=== PATIENT | male | born 1950 | race Caucasian/White ===

== ENCOUNTER 2016-11-30 11:55 | Inpatient (IN) | payer OTHER, BC ==
[~2016-11-30] VITALS: Ht 185.4 cm; Wt 101.8 kg
[2016-11-30] MEDS ORDERED: ASPI-435 PO (12:29)
[2016-11-30] MEDS ORDERED: CARV3.122 PO (12:29)
[2016-11-30] MEDS ORDERED: ATOR-26 PO (12:29)
[2016-11-30] MEDS ORDERED: APIX1TAB3 PO (12:29)
[2016-11-30] MEDS ORDERED: LISI-789 PO (12:29)
[2016-11-30] MEDS ORDERED: SODIUM CHLORIDE 0.9% 1000ML 1,000 ML IV SCH (13:30)
[2016-11-30] MEDS ORDERED: SODIUM CHLORIDE 0.9% 500ML 500 ML IV STA (13:31)
[2016-11-30 13:48] LABS: BASO % 0.1 %; BASO ABS # 0.01 K/uL (0-0.2); COMPLETE YES; EOS % 3.1 %; HEMATOCRIT 37.4 % (42-52); IG% 0.2 %; LYMPH % 19.5 %; LYMPH ABS # 1.86 K/uL (1.2-3.4); MEAN CELL VOLUME 78.2 fL (80-100); MEAN CORPUSCULAR HEMOGLOBIN 26.4 pg (25-34); MEAN CORPUSCULAR HGB CONC 33.7 g/dl (32-36); MEAN PLATELET VOLUME 10.2 fL (7.4-10.4); MONO % 8.5 %; NEUT % 68.6 %; PLATELET COUNT 333 K/uL (130-400); RED BLOOD COUNT 4.78 M/uL (4.7-6.1); WHITE BLOOD COUNT 9.55 K/uL (4.8-10.8)
--- NOTE | 2016-11-30 13:57 | DIAGNOSTIC IMAGING REPORT ---
CHEST ONE VIEW PORTABLE CLINICAL HISTORY: Stroke. COMPARISON STUDY: No previous studies for comparison. FINDINGS: Lung volumes are normal. There is no consolidation. Moderate cardiomegaly is noted without evidence of pulmonary edema. There are median sternotomy wires and a prosthetic valve, likely mitral in location. There is no pneumothorax or pleural effusion. There may be curvilinear calcification projecting over the left ventricular apex. IMPRESSION: 1. No acute cardiopulmonary findings. 2. Moderate cardiomegaly. 3. Possible curvilinear calcification projecting of the left ventricular apex. This could reflect artifact, pericardial calcification or an old infarct. Electronically signed by: Ye Etienne M.D. 11/30/2016 1:56 PM Dictated Date/Time: 11/30/2016 1:53 PM
[2016-11-30 13:59] LABS: BLOOD UREA NITROGEN 15 mg/dl (7-18); BUN/CREATININE RATIO 17.1 (10-20); CARBON DIOXIDE 31 mmol/L (21-32); CHLORIDE 106 mmol/L (98-107); CREATININE 0.89 mg/dl (0.60-1.40); GLUCOSE 112 mg/dl (70-99); POTASSIUM 3.9 mmol/L (3.5-5.1); SODIUM 141 mmol/L (136-145)
--- NOTE | 2016-11-30 14:00 | DIAGNOSTIC IMAGING REPORT ---
CT SCAN OF THE BRAIN WITHOUT IV CONTRAST CLINICAL HISTORY: Dizziness. Left-sided facial numbness. COMPARISON STUDY: No priors. TECHNIQUE: Unenhanced axial CT scan of the brain is performed from the vertex to the skull base. CT DOSE: 614.27 mGy.cm FINDINGS: Brain parenchyma: There are age-related involutional changes noting [id number] patchy subcortical and periventricular microangiopathic change. There is focal left parietal encephalomalacia consistent with a remote cortical infarct. There is no hemorrhage, mass effect, or evidence of acute territorial ischemia by CT criteria. Ham-white matter is preserved. No extra-axial fluid collection is seen. Ventricles, sulci, cisterns: Prominent secondary to involutional change. Intracranial vasculature: There is atherosclerotic calcification of the cavernous carotid arteries. Calvarium: Unremarkable. Sinuses and mastoids: There is moderate mucosal thickening within the right maxillary antrum. The remaining visualized paranasal sinuses are clear. The mastoid air cells are well pneumatized. Orbits: The bony orbits are grossly intact. IMPRESSION: 1. There is no hemorrhage, mass effect, or evidence of acute territorial ischemia by CT criteria. 2. Senescent changes and remote left parietal lobe infarct as above. 3. Right maxillary sinus disease. Electronically signed by: Dima Olea M.D. 11/30/2016 1:59 PM Dictated Date/Time: 11/30/2016 1:56 PM
[2016-11-30 14:03] LABS: CKMB/CK RATIO 1.2 (0-3.0); PARTIAL THROMBOPLASTIN RATIO 1.2
[2016-11-30 16:11] LABS: BENZODIAZEPINE, URINE NEG (NEG); COCAINE,URINE NEG (NEG); PHENCYCLIDINE, URINE NEG (NEG)
[2016-11-30] MEDS ORDERED: PHARMACIST DISCHARGE MED REC CONSULT PRN (17:45)
--- NOTE | 2016-11-30 18:10 | History and Physical ---
History & Physical Date & Time of Service: Nov 30, 2016 at 17:44 Chief Complaint: Dizzy, Numbness In Face Primary Care Physician: Benjamin Tijerina M.D. History of Present Illness Source: patient, family, clinic records This patient is a pleasant 66-year-old male that presents to the emergency department with complaints of changes in vision and facial numbness that started today at approximately 11:30 AM. He has experienced similar symptoms in the past. He noticed that first his vision felt like it was not focusing. Then he felt slightly dizzy. Numbness started on the right side of his face and then moves to the left side. He still is experiencing numbness around the left side of his mouth. Vision now is normal. There is no reports of slurred speech or confusion. No focal weakness reported. The patient just had a workup for TIA in the last few weeks. His past medical history is fairly complicated. It started in June 2016 when he presented to the emergency department in [place]. He was found to have an inferior/posterior infarct. He was taken emergently to the [facility]. He was noted to have numerous blockages. He was then taken emergently for cardiac surgery and underwent a CABG 3 and also had a bioprosthetic MVR. His postoperative comlications included atrial fibrillation/A flutter and pericardial effusion. The patient was anticoagulated with Coumadin. He reportedly did not tolerate this. This was switched to Eliquis, which she has been taking for at least one month.The patient just sold his house in [place]. They spend 6 months of the year in the [facility]. They are temporarily living with the patient's son in [place]. He now follows with Dr. Tijerina locally. The patient underwent a workup for CVA a few weeks ago in [facility]. Dr. Tijerina reportedly has these records. The patient had an MRI that showed no acute abnormalities. 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 He did not use anesthetic. He pulled them out his fingers. There are reportedly loose and "bothering him." Workup in the emergency department showed no significant abnormalities in his blood work. He is mildly anemic with hemoglobin of 12.6. Cardiac enzymes are negative. CT of the head was negative. Neurology was contacted. They recommended that the patient be admitted for further workup. Past Medical/Surgical History Medical Problems: (1) Heart disease Status: Chronic History of CVA History of kidney stones status post ureteral stenting in the past and additional to lithotripsy History of atrial fib/atrial flutter status post cardiac surgery History of paracardial effusion status post cardiac surgery. Surgical Problems: (1) H/O mitral valve replacement Status: Resolved June 2016 (2) S/P triple vessel bypass Status: Resolved June 2016 Family History Kidney disease Kidney stones Mother is in her 80s reportedly in good health. Father's past medical history is unknown. Social History Smoking Status: Never Smoker (quit smoking many years ago) Alcohol Use: socially Marital Status: Housing status: lives with significant other Occupational Status: retired (retired facilities plant engineer) Allergies Coded Allergies: No Known Allergies (Unverified , 11/30/16) Home Medications Scheduled Apixaban (Eliquis), 5 MG PO BID Aspirin (Aspirin 81), 81 MG PO DAILY Atorvastatin (Lipitor), 80 MG PO DAILY Carvedilol (Coreg), 3.125 MG PO BID Lisinopril (Zestril), 2.5 MG PO DAILY Review of Systems 10 system review performed and negative unless noted in HPI or below Physical Exam Vital Signs Date Time Temp Pulse Resp B/P Pulse Ox O2 Delivery O2 Flow Rate FiO2 11/30/16 15:16 68 16 134/80 96 11/30/16 14:00 68 20 133/82 97 11/30/16 13:03 69 16 126/82 96 Room Air 11/30/16 12:24 69 11/30/16 11:58 36.7 74 22 145/89 95 Room Air General Appearance: no apparent distress Head: normocephalic Eyes: PERRL, EOMI ENT: + pertinent finding (right upper and right lower molar extracted. No surrounding erythema or edema noted of the gums. No purulent drainage noted. There is a residual piece of tooth in the right lower molar socket.) Neck: no JVD Respiratory/Chest: lungs clear Cardiovascular: regular rate, rhythm, + systolic murmur (very faint systolic murmur noted at the right upper sternal border.) Abdomen/GI: normal bowel sounds, non tender, soft Extremities/Musculoskelatal: no calf tenderness, no pedal edema Neurologic/Psych: silk screen processor II-XII nml as tested, no motor/sensory deficits Skin: warm/dry Diagnostics Laboratory Results Results Past 24 Hours Test 11/30/16 00:00 11/30/16 12:36 Range/Units Urine Opiates Screen NEG NEG Urine Methadone, Qualitative NEG NEG Urine Barbiturates NEG NEG Urine Phencyclidine (PCP) Level NEG NEG Ur Amphetamine/Methamphetamine NEG NEG MDMA (Ecstasy) Screen NEG NEG Urine Benzodiazepines Screen NEG NEG Urine Cocaine Metabolite NEG NEG Urine Marijuana (THC) NEG NEG White Blood Count 9.55 4.8-10.8 K/uL Red Blood Count 4.78 4.7-6.1 M/uL Hemoglobin 12.6 14.0-18.0 g/dL Hematocrit 37.4 42-52 % Mean Corpuscular Volume 78.2 80-100 fL Mean Corpuscular Hemoglobin 26.4 25-34 pg Mean Corpuscular Hemoglobin Concent 33.7 32-36 g/dl Platelet Count 333 130-400 K/uL Mean Platelet Volume 10.2 7.4-10.4 fL Neutrophils (%) (Auto) 68.6 % Lymphocytes (%) (Auto) 19.5 % Monocytes (%) (Auto) 8.5 % Eosinophils (%) (Auto) 3.1 % Basophils (%) (Auto) 0.1 % Neutrophils # (Auto) 6.55 1.4-6.5 K/uL Lymphocytes # (Auto) 1.86 1.2-3.4 K/uL Monocytes # (Auto) 0.81 0.11-0.59 K/uL Eosinophils # (Auto) 0.30 0-0.5 K/uL Basophils # (Auto) 0.01 0-0.2 K/uL RDW Standard Deviation 40.8 36.4-46.3 fL RDW Coefficient of Variation 14.4 11.5-14.5 % Immature Granulocyte % (Auto) 0.2 % Immature Granulocyte # (Auto) 0.02 0.00-0.02 K/uL Prothrombin Time 11.0 9.0-12.0 SECONDS Prothromb Time International Ratio 1.0 0.9-1.1 Activated Partial Thromboplast Time 30.6 21.0-31.0 SECONDS Partial Thromboplastin Ratio 1.2 Sodium Level 141 136-145 mmol/L Potassium Level 3.9 3.5-5.1 mmol/L Chloride Level 106 98-107 mmol/L Carbon Dioxide Level 31 21-32 mmol/L Anion Gap 4.0 3-11 mmol/L Blood Urea Nitrogen 15 7-18 mg/dl Creatinine 0.89 0.60-1.40 mg/dl Est Creatinine Clear Calc Drug Dose 102.2 ml/min Estimated GFR () 102.5 Estimated GFR (Non- 88.5 BUN/Creatinine Ratio 17.1 10-20 Random Glucose 112 70-99 mg/dl Calcium Level 9.0 8.5-10.1 mg/dl Total Creatine Kinase 51 39-308 U/L Creatine Kinase MB 0.6 0.5-3.6 ng/ml Creatine Kinase MB Ratio 1.2 0-3.0 Troponin I < 0.015 0-0.045 ng/ml Microbiology Results 11/30/16 Blood Culture, Jag Batch Pending 11/30/16 Blood Culture, Jag Batch Pending 11/30/16 Blood Culture, Jag Batch Pending Diagnostic Radiology Patient Name: DONNY HALEY JR Unit Number: [id number] Dictated: 11/30/161355 Transcribed: 11/30/161355 EV Printed Date/Time: [~ rep prt dt]/[~ rep prt tm] [~ rep ct labl] - [~ rep ct ivnm] [facility] [place] [address] Dictated: 11/30/161355 Transcribed: 11/30/16 135 EV Printed Date/Time: [~ rep prt dt]/[~ rep prt tm] [~ rep ct labl] - [~ rep ct ivnm] Patient: DONNY HALEY Address1: [address] [place] [address] Rec: [id number] Address2: Acct ID: [id number] [facility] Zip: [place] [address] Date: 1950 Sex: M Room/Bed: Ref Phy: Benjamin Tijerina M.D. SC: [facility] Att Phy: Report #: [id number] Polly Phy: Benjamin Tijerina M.D. Test: HWO Admit Phy: Museum Curator: ALEX Interpreting Phy: Dima Olea M.D. Diagnosis: DIZZY, NUMBNESS IN FACE Ordering Phy: Herbert Dickson DO Service Date: 11/30/16 Admit Date: 11/30/16 MNE: [id number] CONF: DICTATED BY: Dima Olea M.D.]] CC: Herbert Dickson, Benjamin Wylie M.D. Endcc: [~ rep ct add3]] CT SCAN OF THE BRAIN WITHOUT IV CONTRAST CLINICAL HISTORY: Dizziness. Left-sided facial numbness. COMPARISON STUDY: No priors. TECHNIQUE: Unenhanced axial CT scan of the brain is performed from the vertex to the skull base. CT DOSE: 614.27 mGy.cm FINDINGS: Brain parenchyma: There are age-related involutional changes noting [id number] patchy subcortical and periventricular microangiopathic change. There is focal left parietal encephalomalacia consistent with a remote cortical infarct. There is no hemorrhage, mass effect, or evidence of acute territorial ischemia by CT criteria. Ham-white matter is preserved. No extra-axial fluid collection is seen. Ventricles, sulci, cisterns: Prominent secondary to involutional change. Intracranial vasculature: There is atherosclerotic calcification of the cavernous carotid arteries. Calvarium: Unremarkable. Sinuses and mastoids: There is moderate mucosal thickening within the right maxillary antrum. The remaining visualized paranasal sinuses are clear. The mastoid air cells are well pneumatized. Orbits: The bony orbits are grossly intact. IMPRESSION: 1. There is no hemorrhage, mass effect, or evidence of acute territorial ischemia by CT criteria. 2. Senescent changes and remote left parietal lobe infarct as above. 3. Right maxillary sinus disease. Electronically signed by: Dima Olea M.D. 11/30/2016 1:59 PM Dictated Date/Time: 11/30/2016 1:56 PM The status of this report is Signed. Draft = Not yet reviewed or approved by Radiologist. Signed = Reviewed and approved by Radiologist. <AttendingPhy></AttendingPhy> <FamilyPhy>Benjamin Tijerina M.D.</FamilyPhy> < PrimaryPhy>Benjamin Tijerina M.D.</PrimaryPhy> <UnitNumber>[id number]</ UnitNumber> <VisitNumber>[id number]</VisitNumber> <PatientName>DONNY HALEY JR</PatientName> <DateOfBirth>1950</DateOfBirth> <Location>[facility]</ Location> <ServiceDate>11/30/16</ServiceDate> <MNE>ESINDI</MNE> <OrderingPhy> Herbert Dickson DO</OrderingPhy> <OrderingPhyMNE>f rep ord dr saucedo</OrderingPhyMNE > <DictatingPhyMNE>f rep dict dr saucedo</DictatingPhyMNE> <CCListMNE>f rep ct mne</ CCListMNE> <AdmittingPhyMNE>f pt admit dr saucedo</AdmittingPhyMNE> <AttendingPhyMNE >f pt attend dr saucedo</AttendingPhyMNE> <ConsultingPhyMNE>f pt consult dr saucedo</ConsultingPhyMNE> <FamilyPhyMNE>f pt fam dr saucedo</FamilyPhyMNE> <OtherPhyMNE>f pt other dr saucedo</OtherPhyMNE> < PrimaryPhyMNE>f pt prim care dr saucedo</PrimaryPhyMNE> <ReferringPhyMNE>f pt referring dr saucedo</ReferringPhyMNE> Patient: DONNY HALEY JR Address1: [address] [place] [address] Rec: [id number] Address2: Acct ID: [id number] [facility] Zip: [place] [address] Date: 1950 Sex: M Room/Bed: Ref Phy: Benjamin Tijerina M.D. SC: CHRISTOPHER Att Phy: Report #: [id number] Polly Phy: Benjamin Tijerina M.D. Test: CXR1P Admit Phy: Museum Curator: KRYSTYNA Interpreting Phy: Ye Etienne MD Diagnosis: DIZZY, NUMBNESS IN FACE Ordering Phy: Herbert Dickson DO Service Date: 11/30/16 Admit Date: 11/30/16 MNE: [id number] CONF: DICTATED BY: Ye Etienne MD]] CC: Herbert Dickson, Benjamin Wylie M.D. [facility]: [~ rep ct add3]] CHEST ONE VIEW PORTABLE CLINICAL HISTORY: Stroke. COMPARISON STUDY: No previous studies for comparison. FINDINGS: Lung volumes are normal. There is no consolidation. Moderate cardiomegaly is noted without evidence of pulmonary edema. There are median sternotomy wires and a prosthetic valve, likely mitral in location. There is no pneumothorax or pleural effusion. There may be curvilinear calcification projecting over the left ventricular apex. IMPRESSION: 1. No acute cardiopulmonary findings. 2. Moderate cardiomegaly. 3. Possible curvilinear calcification projecting of the left ventricular apex. This could reflect artifact, pericardial calcification or an old infarct. Electronically signed by: Ye Etienne M.D. 11/30/2016 1:56 PM EKG NSR 69 BPM q waves in the Ant leads Impression Assessment and Plan 66-year-old female presents the emergency department with neurological complaints of facial numbness, changes in vision mild dizziness in the setting of recent cardiac surgery Patient numbness, dizziness, changes in vision-patient does have a history of an old CVA. He is thankfully currently anticoagulated with Eliquis. This would make an embolic stroke unlikely. However, this story is complicated with recent cardiac surgery and he recently pulled 2 of his own teeth. None of them appear to be infected, but this does need to be further evaluated for possible endocarditis/septic emboli causing CVA -Admit to telemetry -Case was discussed with Dr. Byrne from neurology in the emergency department. a formal consult has been made. -MRI brain combo -MRA head/neck -Blood cx -check echo -cardiology consult -Continue ASA, eliquis, atovastatin, coreg and lisinopril DVT proph -Teds, SCDs -Anticoagulation as noted above CODE STATUS -LEVEL I FULL CODE This chart was completed in part utilizing [employer] Speech Voice Recognition software. Attempts were made to minimize the grammatical errors, random word insertions, pronoun errors and incomplete sentences. Any formal questions or concerns about the content, text or information contained within the body of this dictation should be directly addressed to the provider for clarification. Level of Care Telemetry Resuscitation Status FULL RESUSCITATION VTE Prophylaxis VTE Risk Assessment Done? Y/N: Yes Risk Level: Low Given or contraindicated: Other Anticoagulation, T.E.D. Stockings, SCD's Reviewed: Pt Seen/Exam by Me History Physician Cataloging Assistant Supervision Note: I interviewed and examined the patient. Discussed with NEHEMIAH Sandoval and agree with findings and plan as documented in the note. Any exceptions or clarifications are listed here: Patient is a 66-year-old male with a history of CABG and mitral valve replacement 5 months ago whose continued to have a constellation of intermittent episodes of various focal neurological deficits as well as intermittent sensation of feeling off balance or wobbly on his feet. Today's occurrence was right-sided facial tingling in addition to the lightheadedness and feeling unsteady on his feet and visual disturbance that then resolved and had residual left sided facial numbness in the perioral region. One month ago when he was hospitalized, he had loss of his left field of vision. He also reports an incident where he was holding something in his left arm and had uncontrolled findings motor skills of the entire left arm. He has been compliant with his L Aquinas and has not missed any doses. He denies any fevers , sweats, or chills. The ER physician spoke to the on-call neurologist who had concerns for possible endocarditis and septic emboli causing this constellation of intermittent symptoms and recommended admission and evaluation for this. Vital signs reviewed No Acute distress, alert awake oriented 3 Extraocular muscles intact Regular rate and rhythm, 1/6 systolic murmur heard at the left lower sternal border, no carotid bruits Lungs clear to auscultation bilaterally, breathing unlabored, no wheezes crackles or rhonchi Abdomen soft nontender nondistended normal active bowel sounds Extremities no edema, 2 posterior cells. His pulses Neurological: Normal strength throughout all extremities cranial nerves II through XII intact except some decreased sensation left perioral region 66-year-old male with history of CAD status post CABG and mitral valve replacement, here with intermittent focal neurological deficits over the last 5 months. -MRI of the brain and MRA of the head and neck ordered -Appreciate neurology and cardiology consults -Check transthoracic echo, however may need BARI if endocarditis is suspected -Follow blood cultures Documented By: Angella Tadeo
[2016-11-30 20:25] VITALS: BP 156/87; PULSE 73; TEMP 36.4; O2SAT 95; Ht 185.4 cm; Wt 101.8 kg
--- NOTE | 2016-11-30 21:17 | EMERGENCY ROOM VISIT NOTE ---
History Report prepared by Mikeibroverto: Luna Meza Under the Supervision of: Dr. Herbert Dickson D.O. First contact with patient: 13:17 Chief Complaint: STROKE SYMPTOMS Stated Complaint: DIZZY, NUMBNESS IN FACE Nursing Triage Summary: pt to [facility] ED with 1-2 wks of blurried vision, facial numbness and dizziness and sx come and go pt c/o his left upper lip numbness currently, pt staets he feels like "someone punched him in the mouth", that started 1 hr ago pt went to [facility] ED for vision loss left eye and was told he had TIA 1 month ago, pt states it lasted 3min and regained vision History of Present Illness The patient is a 66 year old male who presents to the Emergency Room with complaints of persistent stroke symptoms that began two hours ago. The patient states that he first became dizzy today and states that he then noticed blurry vision. He states that he noticed whole face numbness. The patient states that his dizziness felt like the room was spinning. He states that his left lip still feels numb, but denies any facial droop. The patient denies any difficulty talking, eating, or drinking. He has noticed extremity numbness. The patient notes a history of a triple bypass six months ago and a mitral valve replacement. He states that he is on blood thinners. The patient's notes that the patient was evaluated at the beginning of November for similar symptoms, noting that the patient lost his eye site in his left eye at that time. The patient states that he had a work up that revealed previous TIAs on his MRI. Pt denies headache, fevers, chest pain, shortness of breath, nausea, vomiting, diarrhea, pain with urination, and melena. Source of History: patient, spouse/significant other () Onset: two hours ago Position: other (global) Quality: other (stroke symptoms) Timing: other (persistent) Associated Symptoms: + numbness (face, left lip) Note: Associated Symptoms: dizziness Review of Systems See HPI for pertinent positives & negatives. A total of 10 systems reviewed and were otherwise negative. Past Medical & Surgical Medical Problems: (1) Heart disease (2) TIA (transient ischemic attack) Surgical Problems: (1) H/O mitral valve replacement (2) S/P triple vessel bypass Family History Kidney disease Kidney stones Social History Smoking Status: Never Smoker Marital Status: Housing Status: lives with significant other Occupation Status: retired Current/Historical Medications Scheduled Apixaban (Eliquis), 5 MG PO BID Aspirin (Aspirin 81), 81 MG PO DAILY Atorvastatin (Lipitor), 80 MG PO DAILY Carvedilol (Coreg), 3.125 MG PO BID Lisinopril (Zestril), 2.5 MG PO DAILY Allergies Coded Allergies: No Known Allergies (Unverified , 11/30/16) Physical Exam Vital Signs Date Time Temp Pulse Resp B/P Pulse Ox O2 Delivery O2 Flow Rate FiO2 11/30/16 18:01 156/98 11/30/16 18:00 70 18 11/30/16 17:00 76 21 144/84 11/30/16 16:00 68 22 134/90 11/30/16 15:16 68 16 134/80 96 11/30/16 14:00 68 20 133/82 97 11/30/16 13:03 69 16 126/82 96 Room Air 11/30/16 12:24 69 11/30/16 11:58 36.7 74 22 145/89 95 Room Air Physical Exam GENERAL: Sitting up in bed, alert, well appearing, well nourished, no distress, non-toxic EYE EXAM: normal conjunctiva, PERRL and EOM's intact EAR: TMs clear bilaterally. OROPHARYNX: no exudate, no erythema, lips, buccal mucosa, and tongue normal and mucous membranes are moist NECK: supple, no nuchal rigidity, no adenopathy, non-tender CHEST: Midline incision well healed. LUNGS: Clear to auscultation. Normal chest wall mechanics HEART: no murmurs, S1 normal and S2 normal ABDOMEN: abdomen soft, non-tender, normo-active bowel sounds, no masses, no rebound or guarding. BACK: Back is symmetrical on inspection and there is no deformity, no midline tenderness, no CVA tenderness. SKIN: no rashes and no bruising UPPER EXTREMITIES: upper extremities are grossly normal. LOWER EXTREMITIES: No pitting edema. NEURO EXAM: Normal sensorium, cranial nerves II-XII intact, normal speech, no weakness of arms, no weakness of legs. No drift. Finger to nose intact. Gross sensation intact. Medical Decision & Procedures Laboratory Results 11/30/16 12:36 Red Blood Count 4.78, Mean Corpuscular Volume 78.2, Mean Corpuscular Hemoglobin 26.4, Mean Corpuscular Hemoglobin Concent 33.7, Mean Platelet Volume 10.2, Neutrophils (%) (Auto) 68.6, Lymphocytes (%) (Auto) 19.5, Monocytes (%) (Auto) 8.5, Eosinophils (%) (Auto) 3.1, Basophils (%) (Auto) 0.1, Neutrophils # (Auto) 6.55, Lymphocytes # (Auto) 1.86, Monocytes # (Auto) 0.81, Eosinophils # (Auto) 0.30, Basophils # (Auto) 0.01 11/30/16 12:36 Test 11/30/16 00:00 11/30/16 12:36 Urine Opiates Screen NEG (NEG) Urine Methadone, Qualitative NEG (NEG) Urine Barbiturates NEG (NEG) Urine Phencyclidine (PCP) Level NEG (NEG) Ur Amphetamine/Methamphetamine NEG (NEG) MDMA (Ecstasy) Screen NEG (NEG) Urine Benzodiazepines Screen NEG (NEG) Urine Cocaine Metabolite NEG (NEG) Urine Marijuana (THC) NEG (NEG) White Blood Count 9.55 K/uL (4.8-10.8) Red Blood Count 4.78 M/uL (4.7-6.1) Hemoglobin 12.6 g/dL (14.0-18.0) Hematocrit 37.4 % (42-52) Mean Corpuscular Volume 78.2 fL (80-100) Mean Corpuscular Hemoglobin 26.4 pg (25-34) Mean Corpuscular Hemoglobin Concent 33.7 g/dl (32-36) Platelet Count 333 K/uL (130-400) Mean Platelet Volume 10.2 fL (7.4-10.4) Neutrophils (%) (Auto) 68.6 % Lymphocytes (%) (Auto) 19.5 % Monocytes (%) (Auto) 8.5 % Eosinophils (%) (Auto) 3.1 % Basophils (%) (Auto) 0.1 % Neutrophils # (Auto) 6.55 K/uL (1.4-6.5) Lymphocytes # (Auto) 1.86 K/uL (1.2-3.4) Monocytes # (Auto) 0.81 K/uL (0.11-0.59) Eosinophils # (Auto) 0.30 K/uL (0-0.5) Basophils # (Auto) 0.01 K/uL (0-0.2) RDW Standard Deviation 40.8 fL (36.4-46.3) RDW Coefficient of Variation 14.4 % (11.5-14.5) Immature Granulocyte % (Auto) 0.2 % Immature Granulocyte # (Auto) 0.02 K/uL (0.00-0.02) Erythrocyte Sedimentation Rate 32 mm/hr (0-14) Prothrombin Time 11.0 SECONDS (9.0-12.0) Prothromb Time International Ratio 1.0 (0.9-1.1) Activated Partial Thromboplast Time 30.6 SECONDS (21.0-31.0) Partial Thromboplastin Ratio 1.2 Anion Gap 4.0 mmol/L (3-11) Est Creatinine Clear Calc Drug Dose 102.2 ml/min Estimated GFR () 102.5 Estimated GFR (Non- 88.5 BUN/Creatinine Ratio 17.1 (10-20) Calcium Level 9.0 mg/dl (8.5-10.1) Total Creatine Kinase 51 U/L (39-308) Creatine Kinase MB 0.6 ng/ml (0.5-3.6) Creatine Kinase MB Ratio 1.2 (0-3.0) Troponin I < 0.015 ng/ml (0-0.045) C-Reactive Protein 0.89 mg/dl (0-0.29) Laboratory results per my review. Medications Administered Medications (Trade) Dose Ordered Sig/Alisha Route Start Time Stop Time Status Last Admin Dose Admin Sodium Chloride 1,000 ml @ 50 mls/hr Q20H IV 11/30/16 13:30 11/30/16 19:44 DC 11/30/16 14:00 50 MLS/HR Sodium Chloride (Nss 500ml) 500 ml @ 999 mls/hr Q31M STAT IV 11/30/16 13:31 11/30/16 14:01 DC 11/30/16 13:59 999 MLS/HR ECG Indication: other (facial numbness) Rate (beats per minute): 69 Rhythm: sinus rhythm Findings: Q waves (septal inferior), other (normal axis) Comparison ECG Date: no prior available ED Course ED COURSE: Vital signs were reviewed and showed normal vitals The patients medical record was reviewed The above diagnostic studies were performed and reviewed. ED treatments and interventions as stated above. 1318: The patient was evaluated in room B11B. A complete history and physical examination was performed. 1330: Ordered Sodium Chloride 1000 ml @ 50 mls/hr IV, Sodium Chloride 500 ml @ 999 mls/hr IV. 1437: I discussed the patients case with Giulia Pedraza. She states that the patient should be evaluated for further treatment. 1508: Upon reevaluation, the patient is resting comfortably.I discussed my findings with the patient and he understands and agrees with the treatment plan. Based on the patients age, coexisting illnesses, exam and lab findings the decision to treat as an inpatient was made. The patient remained stable while under my care. The patient will be evaluated for further management. 1513: I discussed the patient's case with AMMON New. She is going to evaluate the patient for further treatment. 1539: The patient refused all blood cultures. Medical Decision Differential Diagnosis includes but is not limited to ischemic Stroke, hemorrhagic stroke, bells palsy, mass, neoplasm, migraine headache, seizure, subarachnoid hemorrhage, TIA, and transient global amnesia. Patient is a 66-year-old male who presents the ER for facial numbness along with blurry vision and dizziness. He notes that the symptoms initially started with right sided facial numbness which progressed to the left side associated with feeling unsteady on his feet and blurry vision. He has a history of a mitral valve replacement, on anticoagulation and a recent CABG. Neurologic exam is completely intact. NIH stroke scale is 0. He was not a TPA candidate. Labs show no significant leukocytosis or anemia. BMP along with troponin is unremarkable. INR was unremarkable. Tox was negative. CT head was negative. Discussed case with neurology and they recommended admission for stroke workup. Attempted to obtain blood cultures but patient refused. He was admitted to internal medicine for possible TIA. Consults Time Called: 1430 Consulting Physician: Dr. Fernandez, Neurology Returned Call: [phone] I discussed the patients case with Giulia Pedraza. She states that the patient should be evaluated for further treatment. Additional Consults: Time Called: 1500 Consulted Physician: AMMON New Returned Call: [phone] Additional Comments: I discussed the patient's case with AMMON New. She is going to evaluate the patient for further treatment. Impression Primary Impression: TIA (transient ischemic attack) Additional Impression: Paresthesia Scribe Attestation The scribe's documentation has been prepared under my direction and personally reviewed by me in its entirety. I confirm that the note above accurately reflects all work, treatment, procedures, and medical decision making performed by me. Departure Information Dispostion Being Evaluated By Hospitalist Referrals Benjamin Tijerina M.D. (PCP) Problem Qualifiers Primary Impression: TIA (transient ischemic attack) Transient cerebral ischemia type: unspecified Qualified Codes: G45.9 - Transient cerebral ischemic attack, unspecified
[2016-11-30] MEDS: APIXABAN 2.5 MG TAB PO SCH (21:38)
[2016-11-30] MEDS: CARVEDILOL 3.125 MG TAB PO SCH (21:38)
[2016-11-30] MEDS: ATORVASTATIN 40 MG TAB PO SCH (21:39)
[2016-11-30] MEDS: ASPIRIN 81 MG ECTAB PO SCH (21:39)
[2016-11-30] MEDS ORDERED: SENNA 8.6 MG TAB PO ONE (22:00)
[2016-11-30] MEDS ORDERED: POLYETHYLENE (MIRALAX) 17 GM PACK PO PRN (22:00)
--- NOTE | 2016-11-30 22:54 | DIAGNOSTIC IMAGING REPORT ---
Brain MRA HISTORY: Mental status change Stroke - Attention to [place] TECHNIQUE: 3-D [id number] MRA of the brain was performed without contrast. COMPARISON STUDY: None. FINDINGS: Visualized intracranial internal carotid arteries, distal vertebral arteries, and basilar artery are widely patent. There is no significant stenosis, occlusion, or aneurysm seen within the bilateral ACAs, MCAs, or farm specialist. Small caliber left vertebral artery presumably on a congenital basis. IMPRESSION: No significant stenosis, occlusion, or aneurysm within the [place]. Electronically signed by: Catracho Enriquez M.D. 11/30/2016 10:53 PM Dictated Date/Time: 11/30/2016 10:50 PM
[2016-12-01] VITALS (7 sets, daily range): BP systolic 109–149; BP diastolic 67–87; PULSE 63–80; TEMP 36.3–37.1; O2SAT 93–97
--- NOTE | 2016-12-01 07:24 | DIAGNOSTIC IMAGING REPORT ---
MRI OF THE BRAIN COMBO CLINICAL HISTORY: Strokelike symptoms. Dizziness. Facial numbness. COMPARISON STUDY: CT of the brain dated 11/30/2016. TECHNIQUE: MRI of the brain was performed utilizing various T1 and T2-weighted sequences in the axial, sagittal, and coronal planes. Contrast-enhanced sequences were acquired following the administration of 10 cc of Gadavist. FINDINGS: Brain parenchyma: There are age-related involutional changes noting moderate patchy subcortical and periventricular microangiopathic disease. There is encephalomalacia from a chronic left temporooccipital infarct. Gyriform T1 hyperintensity likely represents laminar necrosis. There is no hemorrhage or mass effect. There is no restricted diffusion to suggest acute ischemia. No enhancing mass lesion is identified on the postcontrast images. Ham-white matter differentiation is preserved. No extra-axial fluid collection is seen. The cerebellar tonsils are normal in configuration. Ventricles, sulci, and cisterns: Prominent secondary to involutional change. Pituitary and sella: Unremarkable. Intracranial vasculature: Normal flow voids are maintained at the skull base. Orbits: The bony orbits are grossly intact. Orbital contents are normal in appearance. Sinuses and mastoids: There is moderate mucosal thickening within the right maxillary antrum. The remaining paranasal sinuses and mastoid air cells are clear. Calvarium: Unremarkable. Cervical cord: Partially visualized cervical spinal cord is normal in morphology and signal intensity. IMPRESSION: 1. There is no hemorrhage, enhancing mass, or evidence of acute ischemia. 2. Senescent changes and chronic infarct as above. 3. Right maxillary sinus disease. Electronically signed by: Dima Olea M.D. 12/01/2016 7:23 AM Dictated Date/Time: 12/01/2016 7:19 AM
--- NOTE | 2016-12-01 07:29 | DIAGNOSTIC IMAGING REPORT ---
NECK MRA HISTORY: Stroke, dizziness, facial numbness. TECHNIQUE: [id number] and gadolinium-enhanced MRA of the neck was performed both before and after the intravenous administration of contrast. All measurements were calculated based on NASCET criteria. The patient was injected with 10 cc of intravenous Gadavist. COMPARISON STUDY: None. FINDINGS: The aortic arch and proximal great vessels are widely patent. The left vertebral artery is hypoplastic. Atheromatous plaque is present at both carotid bulbs, more pronounced on the left. There is a 40% stenosis involving the proximal left internal carotid artery. IMPRESSION: Atheromatous changes with a 40% stenosis involving the proximal left internal carotid artery. Hypoplastic left vertebral artery. Electronically signed by: Chandrakant Kahn M.D. 12/01/2016 7:27 AM Dictated Date/Time: 12/01/2016 7:23 AM
[2016-12-01] MEDS ORDERED: ATORVASTATIN 40 MG TAB PO SCH (09:00)
[2016-12-01] MEDS ORDERED: ASPIRIN 81 MG ECTAB PO SCH (09:00)
[2016-12-01] MEDS: APIXABAN 2.5 MG TAB PO SCH ×2 (09:25→20:40)
[2016-12-01] MEDS: LISINOPRIL 2.5 MG TAB PO SCH (09:25)
[2016-12-01] MEDS: CARVEDILOL 3.125 MG TAB PO SCH ×2 (09:25→20:41)
--- NOTE | 2016-12-01 14:43 | Progress Note ---
Subjective Date of Service: Dec 01, 2016. Subjective Pt evaluation today including: conversation w/ patient, conversation w/ family , physical exam, chart review, lab review, review of inpatient medication list Problem List Medical Problems: (1) Paresthesia Status: Acute Review of Systems Constitutional: No chills, No fatigue, No fever, No problem reported, No see HPI, No sweats, No weakness, No weight loss Eyes: No diplopia, No discharge, No eye pain, No problem reported, No redness, No see HPI, No worsening of vision ENT: No dental problems, No hearing loss, No nasal symptoms, No problem reported, No see HPI, No sore throat, No tinnitus, No trouble swallowing, No unusual epistaxis Respiratory: No cough, No dyspnea at rest, No dyspnea on exertion, No hemoptysis, No problem reported, No see HPI, No shortness of breath, No sputum, No wheezing Cardiac: No PND, No chest pain, No claudication, No edema, No orthopnea, No palpitations, No problem reported, No see HPI Abdomen: No GI bleeding, No constipation, No diarrhea, No nausea, No pain, No problem reported, No see HPI, No vomiting Musculoskeletal: No calf pain, No joint pain, No muscle pain, No problem reported, No see HPI, No swelling Male : No dysuria, No hematuria, No incontinence, No nocturia more than once/ night, No problem reported, No see HPI, No sexual dysfunction, No slowing stream , No urinary frequency Neurologic: + balance problems, + numbness/tingling, + weakness, No memory loss , No paralysis, No problem reported, No see HPI, No vertigo Psychiatric: No anhedonism, No anxiety, No depression symptoms, No insomnia, No problem reported, No see HPI, No substance abuse Heme: No abnormal bleeding/bruising, No clotting problems, No night sweats, No problem reported, No see HPI, No swollen lymph nodes Endo: No excessive thirst, No excessive urination, No fatigue, No problem reported, No see HPI Skin: No bleeding, No color change, No itch, No new/changing skin lesions, No problem reported, No rash, No see HPI Medications Current Inpatient Medications Medications (Trade) Dose Ordered Sig/Alisha Route Start Time Stop Time Status Last Admin Dose Admin Miscellaneous Information (Pharmacist Discharge Med Rec Consult) 1 ea UD PRN N/A 11/30/16 17:45 12/30/16 17:44 Carvedilol (Coreg Tab) 3.125 mg BID PO 11/30/16 21:00 12/30/16 20:59 12/01/16 09:25 3.125 MG Lisinopril (Zestril Tab) 2.5 mg DAILY PO 12/01/16 09:00 12/31/16 08:59 12/01/16 09:25 2.5 MG Apixaban (Eliquis Tab) 5 mg BID PO 11/30/16 21:00 12/30/16 20:59 12/01/16 09:25 5 MG Aspirin (Ecotrin Tab) 81 mg HS PO 11/30/16 21:45 12/30/16 21:44 11/30/16 21:39 81 MG Atorvastatin Calcium (Lipitor Tab) 80 mg HS PO 11/30/16 21:45 12/30/16 21:44 11/30/16 21:39 80 MG Polyethylene (Miralax Powder Packet) 17 gm DAILY PRN PO 11/30/16 22:00 12/30/16 21:59 Objective Vital Signs Date Time Temp Pulse Resp B/P Pulse Ox O2 Delivery O2 Flow Rate FiO2 12/01/16 12:26 37.1 72 20 125/87 95 Room Air 12/01/16 12:00 Room Air 12/01/16 08:00 Room Air 12/01/16 07:52 36.7 63 16 130/81 93 Room Air 12/01/16 04:00 Room Air 12/01/16 03:45 36.7 71 15 109/67 97 Room Air 12/01/16 00:01 36.5 67 16 149/87 94 Room Air 11/30/16 23:59 Room Air 11/30/16 20:25 36.4 73 18 156/87 95 Room Air 11/30/16 18:01 156/98 11/30/16 18:00 70 18 11/30/16 17:00 76 21 144/84 11/30/16 16:00 68 22 134/90 11/30/16 15:16 68 16 134/80 96 Physical Exam General Appearance: no apparent distress Eyes: normal inspection, EOMI ENT: normal ENT inspection, hearing grossly normal, pharynx normal Neck: supple Respiratory/Chest: chest non-tender, lungs clear, normal breath sounds, no respiratory distress, no accessory muscle use Cardiovascular: regular rate, rhythm, no edema, no gallop, no JVD, no murmur Abdomen: normal bowel sounds, non tender, soft, no organomegaly Extremities: normal range of motion, non-tender, normal inspection, no pedal edema, no calf tenderness Neurologic/Psychiatric: digital advertising specialist II-XII nml as tested, no motor/sensory deficits, alert, normal mood/affect, oriented x 3 Skin: normal color, warm/dry, no rash Laboratory Results Last 24 Hours Test 11/30/16 23:35 12/01/16 07:35 Creatine Kinase MB Ratio Assessment and Plan 66 years old man with PMHx of atrial fibrillation/A flutter , CAD S/P CABG 3 and also had a bioprosthetic MVR in 06/2016. since his procedure he complained of intermittent neurologic deficit, amaurosis fugaris, dizzy, Numbness, occasionally fine motor and coordination problems. neuro work up revealed old CVA. US carotid as per patient were negative due to the frequency of his complains, it was though to be coumadin failure and he was switched to Eliquis Assessment: intermittent neurologic deficit check echo with bubble study check B12/TSH/RPR SED rate and CRP are mildly elevated, he was instructed to F/U with [employer] for full work up to R/O vasculitis Hypoplastic left vertebral artery on MRA neck MRA head was negative Afib currently sinus rate controlled Continue ASA, eliquis, atovastatin, coreg and lisinopril Right maxillary sinus disease nasal wash course of augmentin
[2016-12-01] MEDS: AMOXICILLIN/CLAVULANATE TAB 875 MG TAB PO SCH (16:30)
[2016-12-01] MEDS: SODIUM CHLORIDE 0.65% NA SOLN 45 ML (OCEAN) SCH ×2 (16:30→20:45)
[2016-12-01 16:33] LABS: LYME DISEASE AB IGG NEG (NEG); LYME DISEASE AB IGM NEG (NEG)
[2016-12-01] MEDS ORDERED: OPTIRAY 320 IV PRN (18:30)
--- NOTE | 2016-12-01 19:52 | NEUROLOGY CONSULTATION ---
DATE OF CONSULTATION: 12/01/2016 REASON FOR CONSULTATION: Possible transient ischemic attack. HISTORY OF PRESENT ILLNESS: Mr. Benavides is a 66-year-old right-handed male, presenting to the Emergency Room with change in vision and facial numbness. In June of 2016, he presented to an emergency room in [place], he was found to have an inferior posterior myocardial infarction and was taken emergently to lab scientist, had numerous blockages and was sent for emergency cardiac surgery, went for bypass surgery and also had placement of a bioprosthetic mitral valve. His postop complications included atrial fibrillation and atrial flutter and pericardial effusion. He was initially anticoagulated with Coumadin, which he was to take at least for 3 months. Recently, he requested his primary care doctor take him off Coumadin as he was going to go on a sailing trip in the [facility]. He had been off Coumadin approximately 3 weeks when he had an episode of sudden white vision in the left eye, lasting 2-3 minutes, perhaps accompanied by some mild lightheadedness, not followed by a headache or other neurologic concerns. He may or he may not have had left facial numbness with this event, he does not recall having had although his indicates that he did. Again this was a relatively brief episode. He was admitted to [facility] where by report, he had an MRI of the brain. I assume he had some vascular imaging an echocardiography and he was placed on Eliquis in addition to the aspirin that he was already taking. He has been taking Eliquis for approximately 3 weeks. On this background, the day of admission, patient was standing, felt vaguely lightheaded and had bifacial numbness, which lasted several minutes and then followed by numbness in the left face which persisted. There was no accompanying headache or other neurologic symptoms. He has noted since the bypass surgery that he will briefly become dizzy, which he describes as an imbalance and this may be accompanied by left lip numbness. The patient has otherwise been well. He recently pulled several of his teeth, likely without antibiotic prophylaxis. In spite of this, he has not had fevers, chills, sweats or weight loss. He has no prior history of transient ischemic attack, although his MRI brain shows a left posterior parietal infarction which appears old. PAST MEDICAL HISTORY: Notable for heart disease. He did not routinely see a physician prior to his AZ. 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 He has a history of kidney stones status post stenting and lithotripsy, atrial fibrillation/flutter post cardiac surgery, pericardial effusion. PAST SURGICAL HISTORY: Bypass, mitral valve replacement. SOCIAL HISTORY: Nonsmoker, nondrinker. 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 His mother is in her 80s and in good health. Father's medical history unknown. Siblings are well. He has 2 children who are well. MEDICATIONS: On admission, to which he admits compliance is; Eliquis 5 mg b.i.d., aspirin 81, Lipitor, Coreg, lisinopril. Electrocardiogram on admission, normal sinus rhythm, poor R-wave progression, consider anterior AZ versus lead placement versus LVH. MRI of the brain with and without contrast shows no acute infarction with encephalomalacia from a chronic left temporal occipital infarction with laminar necrosis. Flow voids through the basilar artery appear intact. MRA head: No significant stenosis. Small caliber left query congenital versus acquired atheromatous changes of the left internal carotid of 40%. LABORATORY DATA: His white count on admission was 9.5, H\T\H 12.6/37, platelet count 333. Sed rate 32. PT 10, INR 1.2. Chemistry profile notable for random glucose of 112. CRP 0.89. Tox screen negative. Lyme titer negative. PHYSICAL EXAMINATION: VITAL SIGNS: 36.7, 74, 20, 130/81, 94%. GENERAL: The patient is awake and alert. He is only a fair historian. He is oriented x3. There are no carotid, vertebral bruits. Radial pulses are palpably symmetric. No temporal tenderness. NECK: Supple. NEUROLOGIC: Pupils are equal. I could not reliably visualize the optic nerves. There is normal light, motility, facial sensation and facial symmetry. Tongue is midline. Speech is nondysarthric. Motor strength is foot. There is no drift. Normal rapid alternating movements. Prxsly-aq-uifl and vujv-oy-dwao are normal. Reflexes symmetric. Toes downgoing. No distal sensory loss is noted to temperature or vibration. His gait tandem and Romberg are unremarkable. IMPRESSION: Query posterior circulation transient ischemic attack, albeit the episode yesterday lasted hours and MRI showing no acute infarction. Given the presence of either a hypoplasia versus stenosis of the left vertebral artery and apparent posterior circulation localization of these events, recommend CTA of the head and neck to further evaluate the left Vert. Some of these episodes have occurred while standing and one wonders if he is either orthostatic and selectively hypoperfuses the posterior circulation or if there potentially could be some dysrhythmia. I would advocate for a transesophageal echo to rule out valvular vegetation, especially since patient has undergone self dental care without antibiotic prophylaxis. Blood cultures seem appropriate as well. We would also recommend telemetric monitoring, perhaps long-term. We will follow with you. TREVOR
[2016-12-01] MEDS: ATORVASTATIN 40 MG TAB PO SCH (20:40)
[2016-12-01] MEDS: ASPIRIN 81 MG ECTAB PO SCH (20:41)
--- NOTE | 2016-12-01 22:29 | DIAGNOSTIC IMAGING REPORT ---
CT ANGIOGRAPHY HEAD COMBO CLINICAL HISTORY: Posterior circulation transient ischemic attack. TECHNIQUE: Unenhanced and arterial phase images of the head were obtained. Injection of 116 cc of Optiray 320 IV was uneventful. Sagittal and coronal reconstructions were viewed as well as maximal intensity projections on an independent 3-D workstation. COMPARISON STUDY: Head CT and MRI of the brain November 30, 2016. MRA of the intracranial circulation November 30, 2016. FINDINGS: The CTA of the neck will be reported separately. No acute intracranial hemorrhage, midline shift or mass effect is present. Ventricular system is unremarkable for age. The basilar cisterns are patent. There are no extra-axial collections. There are no CT findings to suggest acute dural sinus thrombosis or acute territorial infarct. White matter hypodensities likely reflect small vessel disease. There is a small old infarct within the left temporooccipital region. The bilateral M1, M2, A1 and A2 segments are patent. The right vertebral arterial artery is dominant. The left vertebral artery is somewhat diminutive. There is moderate plaque within the bilateral cavernous carotids. There is mild stenosis of the bilateral cavernous carotids. There is no abrupt vessel cut off within the intracranial circulation. No aneurysm is identified. IMPRESSION: 1. No acute intracranial findings. 2. Old left temporooccipital infarct. 3. No abrupt vessel cut off or intracranial aneurysm identified. 4. Moderate plaque within the bilateral cavernous carotids with mild stenosis. Electronically signed by: Ye Etienne M.D. 12/01/2016 10:28 PM Dictated Date/Time: 12/01/2016 10:22 PM
--- NOTE | 2016-12-01 22:38 | DIAGNOSTIC IMAGING REPORT ---
CT ANGIOGRAPHY OF THE NECK WITH CONTRAST CLINICAL HISTORY: Posterior circulation transient ischemic attack. COMPARISON STUDY: MRA of the neck November 30, 2016. Technique: CT angiography of the carotid and vertebral arteries was obtained using OptiraKanshu 320 IV and 3D reconstruction on an independent workstation. NASCET criteria was utilized. Findings: There is mild plaque within the bilateral common carotid and internal carotid artery. There is 40% stenosis of the proximal left internal carotid artery at the vessel origin. There is minimal stenosis of the proximal right internal carotid artery. The right vertebral artery is dominant and patent. There is suspected severe stenosis at the origin of the left vertebral artery. No dissection is present. There is no cervical lymphadenopathy. There is mild mucosal thickening of the sinuses. The right submandibular gland is not visualized. There are median sternotomy wires and postsurgical findings consistent with bypass grafting. IMPRESSION: 1. Suspected severe stenosis at the origin of the left vertebral artery. 2. Dominant, patent right vertebral artery. 3. Mild stenosis of the proximal bilateral internal carotid arteries (40% left and 30% right). Electronically signed by: Ye Etienne M.D. 12/01/2016 10:36 PM Dictated Date/Time: 12/01/2016 10:30 PM
[2016-12-02 00:05] VITALS: BP 118/72; PULSE 67; TEMP 36.7; O2SAT 95
[2016-12-02 00:08] VITALS: BP 130/84; PULSE 72
[2016-12-02 03:36] VITALS: BP 104/65; PULSE 74; TEMP 36.7; O2SAT 94
[2016-12-02 05:54] LABS: RAPID PLASMA REAGIN NONREACTIVE (NONREACT)
[2016-12-02 07:53] LABS: BASO % 0.2 %; BASO ABS # 0.02 K/uL (0-0.2); COMPLETE YES; EOS % 2.8 %; HEMATOCRIT 39.1 % (42-52); IG% 0.1 %; LYMPH % 19.9 %; LYMPH ABS # 2.18 K/uL (1.2-3.4); MEAN CELL VOLUME 79.5 fL (80-100); MEAN CORPUSCULAR HEMOGLOBIN 27.6 pg (25-34); MEAN CORPUSCULAR HGB CONC 34.8 g/dl (32-36); MEAN PLATELET VOLUME 10.8 fL (7.4-10.4); MONO % 10.4 %; NEUT % 66.6 %; PLATELET COUNT 325 K/uL (130-400); RED BLOOD COUNT 4.92 M/uL (4.7-6.1); WHITE BLOOD COUNT 10.97 K/uL (4.8-10.8)
[2016-12-02 08:24] LABS: BUN/CREATININE RATIO 17.9 (10-20); CREATININE 0.91 mg/dl (0.60-1.40); POTASSIUM 4.1 mmol/L (3.5-5.1)
[2016-12-02 08:27] LABS: ALB/GLOB RATIO 0.8 (0.9-2); PHOSPHORUS 3.8 mg/dl (2.5-4.9)
[2016-12-02] MEDS: CARVEDILOL 3.125 MG TAB PO SCH (08:35)
[2016-12-02] MEDS: SODIUM CHLORIDE 0.65% NA SOLN 45 ML (OCEAN) SCH ×2 (08:35→13:00)
[2016-12-02] MEDS: APIXABAN 2.5 MG TAB PO SCH (08:35)
[2016-12-02] MEDS: AMOXICILLIN/CLAVULANATE TAB 875 MG TAB PO SCH (08:35)
[2016-12-02] MEDS: LISINOPRIL 2.5 MG TAB PO SCH (08:35)
[2016-12-02 09:16] VITALS: BP 139/86; PULSE 71; TEMP 36.7; O2SAT 95
[2016-12-02] MEDS ORDERED: AMOX1TAB43 PO (10:17)
[2016-12-02] MEDS ORDERED: SALI0.6510 (10:17)
--- NOTE | 2016-12-02 10:20 | Discharge Instructions ---
Discharge Instructions Admission Admission Date: Nov 30, 2016 at 18:13 Admission Diagnosis: Tia (Transient Ischemic Attack). Discharge Care Plan - Problem: Medical Problems: (1) Paresthesia Care Plan - Goal(s): Improve function Care Plan - Instructions: Recommended Home Diet: Regular VTE Core Measure Inpt VTE Proph given/why not?: Other Anticoagulation, T.E.D. Stockings, SCD's Laboratory Results Test Results: Lipid Panel Test 12/02/16 10:15 Range/Units Yanni Faulkner Recommendations: Call your doctor if: * Temperature above 101 degrees * Pain not relieved by pain medicine ordered * There is increased drainage or redness from any incision * You have any unanswered questions or concerns. Your Doctors Instructions noted above were prepared by provider Yosvany Bedoya.
--- NOTE | 2016-12-02 10:57 | ECHOCARDIOGRAM REPORT ---
*NOTICE TO RECEIVING CONSTITUTION PARTY AGENCY This information is strictly Confidential and protected under [place] law. [place] law prohibits you from making any further disclosure of this information unless further disclosure is expressly permitted by the written consent of the person to whom it pertains or is authorized by law. A general authorization for the release of medical or other information is not sufficient for this purpose. Hospital accepts no responsibility if the information is made available to any other person, INCLUDING THE PATIENT. Interpretation Summary * Name: DONNY HALEY JR Study Date: 12/02/2016 07:36 AM BP: 104/65 mmHg * Patient Location: C.2T\S\S242\S\2 HR: 74 * : 1950 (M/d/yyyy) Gender: Male Height: 73 in * Age: 66 yrs Ethnicity: CA Weight: 230 lb * Ordering Physician: Lili Sandoval * Referring Physician: Benjamin Tijerina * Performed By: Felicia Gupta RDCS * * Reason For Study: Cerebral ischemia/embolus * BSA: 2.3 m2 * -- Conclusions -- * Left ventricular systolic function is normal. * Grade I diastolic dysfunction, (abnormal relaxation pattern). * There are regional wall motion abnormalities as specified. * The right ventricular systolic function is reduced as assessed by tricuspid annular plane systolic excursion (TAPSE) (TAPSE <1.6 cm). * There is a bioprosthetic mitral valve. * There are no vegetations on this prosthetic mitral valve. * Right ventricular systolic pressure is normal. * Mild aortic root dilatation. Procedure Details * A complete two-dimensional transthoracic echocardiogram was performed (2D, M-mode, Doppler and color flow Doppler). * A saline contrast injection was performed to assess for cardiac shunting. * The injection was performed through an intravenous line in the right arm. * The attending nurse who injected the saline contrast was Anisha Lucas RN. * A total of 40 cc of agitated saline was given. Left Ventricle * The left ventricle is normal in size. * There is normal left ventricular wall thickness. * Ejection Fraction = 55-60%. * Left ventricular systolic function is normal. * Grade I diastolic dysfunction, (abnormal relaxation pattern). * There are regional wall motion abnormalities as specified. * Basal posterior wall appears thinned and hypokinetic Right Ventricle * The right ventricle is grossly normal size. * The right ventricular systolic function is reduced as assessed by tricuspid annular plane systolic excursion (TAPSE) (TAPSE <1.6 cm). Atria * The left atrium is borderline dilated. * Right atrial size is normal. * Bubble study performed, interatrial septum appears intact Mitral Valve * There is mild mitral regurgitation. * There is a bioprosthetic mitral valve. * There are no vegetations on this prosthetic mitral valve. Tricuspid Valve * The tricuspid valve is not well visualized, but is grossly normal. * There is mild tricuspid regurgitation. * Right ventricular systolic pressure is normal. Aortic Valve * The aortic valve is trileaflet. * Calcification at the coaptation of the left and non-coronary cusps * No hemodynamically significant valvular aortic stenosis. * There is no significant aortic regurgitation. Great Vessels * Mild aortic root dilatation. Pericardium/Pleural * There is no pericardial effusion. MMode 2D Measurements and Calculations IVSd 1.1 cm LVIDd 4.7 cm LVIDs 3.4 cm LVPWd 1.1 cm IVS/LVPW 1.0 FS 27.8 % EDV(Teich) 100.7 ml ESV(Teich) 46.3 ml EF(Teich) 54.0 % EDV(cubed) 101.6 ml ESV(cubed) 38.2 ml EF(cubed) 62.4 % LV mass(C)d 186.8 grams LV mass(C)dI 81.8 grams/m\S\2 CO(Teich) 3.6 l/min CI(Teich) 1.6 l/min/m\S\2 SV(Teich) 54.3 ml SI(Teich) 23.8 ml/m\S\2 CO(cubed) 4.2 l/min CI(cubed) 1.8 l/min/m\S\2 SV(cubed) 63.4 ml SI(cubed) 27.8 ml/m\S\2 Ao root diam 3.1 cm Ao root area 7.5 cm\S\2 ACS 1.2 cm LA dimension 3.9 cm asc Aorta Diam 4.1 cm LA/Ao 1.3 LVOT diam 2.0 cm LVOT area 3.1 cm\S\2 LVAd ap4 30.0 cm\S\2 LVLd ap4 8.1 cm EDV(MOD-sp4) 90.7 ml LVAs ap4 18.8 cm\S\2 LVLs ap4 7.5 cm ESV(MOD-sp4) 40.2 ml EF(MOD-sp4) 55.7 % LVAd ap2 35.7 cm\S\2 LVLd ap2 9.0 cm EDV(MOD-sp2) 118.0 ml LVAs ap2 21.0 cm\S\2 LVLs ap2 7.8 cm ESV(MOD-sp2) 47.8 ml EF(MOD-sp2) 59.5 % CO(MOD-sp4) 3.3 l/min CI(MOD-sp4) 1.5 l/min/m\S\2 SV(MOD-sp4) 50.5 ml SI(MOD-sp4) 22.1 ml/m\S\2 CO(MOD-sp2) 4.6 l/min CI(MOD-sp2) 2.0 l/min/m\S\2 SV(MOD-sp2) 70.2 ml SI(MOD-sp2) 30.7 ml/m\S\2 Doppler Measurements and Calculations MV E max osmar 116.4 cm/sec MV A max osmar 120.8 cm/sec MV E/A 0.96 MV V2 max 175.3 cm/sec MV max PG 12.3 mmHg MV V2 mean 111.5 cm/sec MV mean PG 5.5 mmHg MV V2 VTI 48.7 cm MV dec time 0.37 sec Ao V2 max 168.3 cm/sec Ao max PG 11.3 mmHg Ao max PG (full) 4.3 mmHg LISSA(V,A) 2.4 cm\S\2 LISSA(V,D) 2.4 cm\S\2 LV V1 max PG 7.1 mmHg LV V1 max 132.9 cm/sec PA V2 max 86.9 cm/sec PA max PG 3.0 mmHg PA acc slope 508.3 cm/sec\S\2 PA acc time 0.10 sec PI max osmar 143.9 cm/sec PI max PG 8.3 mmHg PI dec slope 121.3 cm/sec\S\2 PI P1/2t 347.5 msec TR max osmar 240.0 cm/sec PA pr(Accel) 33.1 mmHg
[2016-12-02 11:12] LABS: CHOLESTEROL/HDL RATIO 2.7
[2016-12-02 12:03] VITALS: BP 126/81; PULSE 65; TEMP 36.6; O2SAT 95
[2016-12-02 12:29] VITALS: BP 126/81; PULSE 65; TEMP 36.6; O2SAT 95
--- NOTE | 2016-12-02 14:08 | Pharmacy Progress Note ---
Pharmacist Stroke Counseling Date of Service Dec 02, 2016. Scope Pharmacy has been consulted to provide medication discharge counseling for this patient admitted with ischemic stroke/hemorrhagic stroke/ transient ischemic attack as per the Pharmacist Discharge Counseling for Stroke Patients Protocol. Medications on Discharge New Medications: Amoxicillin & Pot Clavulanate (Amoxicillin/Clavulanate P) 1 Tab Tab 875 MG PO BIDM for 7 Days, #14 TAB Saline ([place] Nasal [place]) 0.65 % Spr 2 SPRAYS NA QID for 30 Days, #1 BTL Continued Medications: Apixaban (Eliquis) 5 Mg Tab 5 MG PO BID, TAB Aspirin (Aspirin 81) 81 Mg Tab 81 MG PO DAILY Atorvastatin (Lipitor) 80 Mg Tab 80 MG PO DAILY, TAB Carvedilol (Coreg) 3.125 Mg Tab 3.125 MG PO BID, TAB Lisinopril (Zestril) 2.5 Mg Tab 2.5 MG PO DAILY Action The above medications, specifically ones for stroke treatment/prophylaxis, have been reviewed in detail with the patient and/or patient account representative(s) prior to discharge. This includes indication, common adverse reactions, drug interactions, and medication administration. Medication counseling has been employed using the teach-back method to ensure understanding. Outcome The patient has demonstrated understanding of the medications. Thank you for allowing pharmacy to be involved in the care of this patient. Please call [phone] or [phone] with any additional questions
--- NOTE | 2016-12-02 16:55 | CARDIOLOGY PROGRESS NOTE ---
DATE: 12/02/2016 SUBJECTIVE: Mr. Benavides is resting comfortably in bed without complaints of chest pain, dyspnea, fever, or chills. He continues to be concerned about his waxing and waning neurologic complaints. OBJECTIVE: VITAL SIGNS: Blood pressure is 126/88 with a regular pulse of 65. Respiratory rate is 20. The patient is afebrile at 36.6 degrees Celsius. Saturations 95% on room air. NECK: Supple with full carotid upstrokes. There are no carotid bruits. Jugular venous pressure is flat at 90 degrees. There is no thyromegaly. CARDIOVASCULAR: Reveals a regular rhythm with a normal S1 and S2. Heart sounds are distant. No obvious murmurs. LUNGS: Clear without rales, rhonchi, or wheezes. ABDOMEN: Soft and nontender without bruits. EXTREMITIES: Reveal intact radial artery pulses bilaterally. There is no peripheral edema. DATA: CBC notes hemoglobin of 13.6, hematocrit 39.1, white count 10.9, and platelet count 325,000. Electrolytes note a sodium of 141, potassium 4.1, chloride 106, bicarb 26, BUN 16, creatinine 0.9, and glucose 107. TSH level is normal at 1.13. LDL cholesterol is 66 with an HDL of 47. INR is 1.0. Urine toxicology screen is negative. EKG notes normal sinus rhythm with poor R-wave progression across the anterior precordium. child monitor notes sinus rhythm without paroxysms of atrial fibrillation. Echocardiogram notes normal left ventricular systolic function without wall motion abnormalities. The bioprosthetic mitral valve functions properly. No prosthetic valvular vegetations identified. No pericardial effusions. IMPRESSION AND PLAN: 1. Urologic complaints -- workup per Dr. Byrne. 2. Coronary artery disease -- status post emergent 3-vessel bypass and placement of an Roberts pericardial tissue valve on 08/25/2016. The patient is stable on current medical regimen. 3. Paroxysmal atrial fibrillation -- remains in sinus rhythm. He does have a history of a transient ischemic attack, which occurred on November 02 of this year while on coumadin. He is currently using Eliquis off label. 4. Bioprosthetic mitral valve -- normal function on echocardiogram performed today. 5. Hypercholesterolemia. MTDD
--- NOTE | 2016-12-02 17:42 | Discharge Summary ---
Discharge Summary Date of Service Dec 02, 2016. Discharge Summary Admission Date: Nov 30, 2016 at 18:13 Discharge Date: Dec 02, 2016 Discharge Disposition: Home Principal Diagnosis: Intermittent neurologic symptoms unspecified Medication Reconciliation New Medications: Amoxicillin & Pot Clavulanate (Amoxicillin/Clavulanate P) 1 Tab Tab 875 MG PO BIDM for 7 Days, #14 TAB Saline ([place] Nasal [place]) 0.65 % Spr 2 SPRAYS NA QID for 30 Days, #1 BTL Continued Medications: Apixaban (Eliquis) 5 Mg Tab 5 MG PO BID, TAB Aspirin (Aspirin 81) 81 Mg Tab 81 MG PO DAILY Atorvastatin (Lipitor) 80 Mg Tab 80 MG PO DAILY, TAB Carvedilol (Coreg) 3.125 Mg Tab 3.125 MG PO BID, TAB Lisinopril (Zestril) 2.5 Mg Tab 2.5 MG PO DAILY Discharge Exam Review of Systems: Constitutional: No chills, No fatigue, No fever, No problem reported, No sweats, No weakness, No weight loss Eyes: No diplopia, No discharge, No eye pain, No problem reported, No redness, No worsening of vision ENT: No dental problems, No hearing loss, No nasal symptoms, No problem reported, No sore throat, No tinnitus, No trouble swallowing, No unusual epistaxis Respiratory: No cough, No dyspnea at rest, No dyspnea on exertion, No hemoptysis, No problem reported, No shortness of breath, No sputum, No wheezing Cardiovascular: No PND, No chest pain, No claudication, No edema, No orthopnea, No palpitations, No problem reported Abdomen: No GI bleeding, No constipation, No diarrhea, No nausea, No pain, No problem reported, No vomiting Musculoskeletal: No calf pain, No joint pain, No muscle pain, No problem reported, No swelling Genitourinary - Male: No dysuria, No hematuria, No impotence, No lesions, No penile discharge, No problem reported, No urinary frequency, No urinary hesitancy, No urinary incontinence, No urinary retention, No urinary urgency Neurologic: No balance problems, No memory loss, No numbness/tingling, No paralysis, No problem reported, No vertigo, No weakness Psychiatric: No anhedonism, No anxiety, No depression symptoms, No insomnia , No problem reported, No substance abuse Endocrine: No excessive thirst, No excessive urination, No fatigue, No problem reported Hematologic / Lymphatic: No abnormal bleeding/bruising, No clotting problems , No night sweats, No problem reported, No swollen lymph nodes Integumentary: No bleeding, No color change, No itch, No new/changing skin lesions, No problem reported, No rash Physical Exam: General Appearance: no apparent distress Eyes: normal inspection, PERRL, EOMI ENT: normal ENT inspection, hearing grossly normal, TMs normal, pharynx normal Neck: supple, no adenopathy, thyroid normal Respiratory/Chest: chest non-tender, lungs clear, normal breath sounds, no respiratory distress, no accessory muscle use Cardiovascular: regular rate, rhythm, no edema, no gallop, no JVD, no murmur Abdomen / GI: normal bowel sounds, non tender, soft, no organomegaly, no pulsatile mass, normal rectal exam Extremities: normal inspection, no calf tenderness, normal capillary refill , no pedal edema Neurologic/Psychiatric: 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 since his procedure he complained of intermittent neurologic deficit, amaurosis fugaris, dizzy, Numbness, occasionally fine motor and coordination problems. neuro work up revealed old CVA. US carotid as per patient were negative due to the frequency of his complains, it was though to be coumadin failure and he was switched to Eliquis he stayed in the hospital for 2 nights, the following problems were addressed; intermittent neurologic deficit check echo with bubble study results are: * -- Conclusions -- * Left ventricular systolic function is normal. * Grade I diastolic dysfunction, (abnormal relaxation pattern). * There are regional wall motion abnormalities as specified. * The right ventricular systolic function is reduced as assessed by tricuspid annular plane systolic excursion (TAPSE) (TAPSE <1.6 cm). * There is a bioprosthetic mitral valve. * There are no vegetations on this prosthetic mitral valve. * Right ventricular systolic pressure is normal. * Mild aortic root dilatation. check B12/TSH/RPR/lyme titer all were normal SED rate and CRP are mildly elevated, he was instructed to F/U with [employer] for full work up to R/O vasculitis Hypoplastic left vertebral artery on MRA neck MRA head was negative Afib/CAD S/P CABG and bioprosthetic valve currently sinus rate controlled Continue ASA, eliquis, atovastatin, coreg and lisinopril Right maxillary sinus disease nasal wash course of augmentin finally he understands that his care is a process, that started here but he needs to continue as an out patient he will follow up with PCP and neurologisy, currently he is symptoms free Total Time Spent: Greater than 30 minutes This includes examination of the patient, discharge planning, medication reconciliation, and communication with other providers. Discharge Instructions Please refer to the electronic Patient Visit Report (Discharge Instructions) for additional information.
== END 2016-12-02 14:02 | disposition home or self-care (01) | DRG 93 ==
LOC: ENRESERVTM → ENRESERVDT → C.EDB 11:59 → C.2T 18:13
PROVIDERS: ADMIT Family Medicine; ATTEND Internal Medicine
DX: R29.818 Other symptoms and signs involving the nervous system (principal); I48.91 Unspecified atrial fibrillation; E78.00 Pure hypercholesterolemia, unspecified; J32.0 Chronic maxillary sinusitis; I25.10 Atherosclerotic heart disease of native coronary artery without angina pectoris; Z95.1 Presence of aortocoronary bypass graft; Z95.5 Presence of coronary angioplasty implant and graft; Z79.82 Long term (current) use of aspirin; Z79.01 Long term (current) use of anticoagulants; Z87.891 Personal history of nicotine dependence